=== PATIENT | male | born 1955 | race Caucasian/White ===

== ENCOUNTER 2017-05-03 02:01 | Emergency (ER) | payer SELFPAY ==
[~2017-05-03] VITALS: Ht 165.1 cm; Wt 55.0 kg
[2017-05-03 02:33] LABS: HEMATOCRIT 37.6 % (39.0-50.0); HEMOGLOBIN 12.6 g/dl (14.0-18.0); IMMATURE GRANULOCYTES 0.8 % (0.0-1.0); MEAN CELL VOLUME 94.7 fL CALC (80.0-100.0); MEAN CORPUSCULAR HGB 31.7 pG CALC (26.0-32.0); MEAN CORPUSCULAR HGB CONC 33.5 g/L CALC (32.0-36.0); NEUT# 4.83 thou/uL (1.82-7.42); RED BLOOD COUNT 3.97 mill/uL (4.70-6.10); RED CELL DISTRI WIDTH 13.3 % (11.5-15.5)
[2017-05-03 02:46] LABS: ALBUMIN 3.8 g/dL (3.2-5.0); ALKALINE PHOSPHATASE 75 u/l (38-126); ANION GAP 11 (6-22 (CALC)); BILIRUBIN, TOTAL 0.6 mg/dL (0.0-1.4); BUN 14 mg/dL (8-23); BUN/CREATININE RATIO 17 (12-20 (CALC)); CALCIUM 8.8 mg/dL (8.4-10.2); CARBON DIOXIDE 25 mmol/l (22-30); CHLORIDE 108 mmol/l (95-108); CREATININE 0.8 mg/dL (0.7-1.3); GFR > 60 ML/MIN (>=60 (CALC)); GFR FOR AFR.AMER. > 60 ML/MIN (>=60 (CALC)); GLUCOSE 99 mg/dL (82-115); POTASSIUM 3.2 mmol/l (3.5-5.1); SGOT/AST 49 u/l (19-48); SGPT/ALT 53 u/l (11-66); SODIUM 141 mmol/l (137-146); TOTAL PROTEIN 6.7 g/dL (6.3-8.2)
[2017-05-03 03:00] LABS: MYOGLOBIN 81 ng/mL (0 - 121)
[2017-05-03 03:30] VITALS: BP 143/78
== END 2017-05-03 03:30 | DRG 313 ==
LOC: ED 02:01
PROVIDERS: Emergency Medicine
DX: R07.89 Other chest pain (principal); F41.9 Anxiety disorder, unspecified; F17.210 Nicotine dependence, cigarettes, uncomplicated

== ENCOUNTER 2017-05-18 03:33 | Emergency (ER) | payer SELFPAY | END 2017-05-18 03:35 | disposition left against medical advice (07) | DRG 951 | LOC: ED 03:33 → LWOBS 03:35 | DX: Z91.19 Patient's noncompliance with other medical treatment and regimen (principal) ==

== ENCOUNTER 2019-10-12 | Emergency (ER) | payer SELFPAY ==
[2019-10-12] MEDS ORDERED: KEFLEX500 MG PO (14:47)
== END 2019-10-12 14:50 | disposition home or self-care (01) | DRG 563 ==
DX: S62.635B Displaced fracture of distal phalanx of left ring finger, initial encounter for open fracture (principal); F17.290 Nicotine dependence, other tobacco product, uncomplicated; W20.8XXA Other cause of strike by thrown, projected or falling object, initial encounter

== ENCOUNTER 2020-05-30 10:07 | Emergency (ER) | payer OTHER ==
[~2020-05-30] VITALS: Ht 165.1 cm; Wt 53.0 kg
[~2020-05-30 10:07] MED LIST: KEFLEX500 MG PO
[2020-05-30 10:55] LABS: HEMATOCRIT 44.4 % (39.0-50.0); HEMOGLOBIN 14.4 g/dl (14.0-18.0); IMMATURE GRANULOCYTES 0.5 % (0.0-5.0); MEAN CELL VOLUME 98.7 fL CALC (80.0-100.0); MEAN CORPUSCULAR HGB CONC 32.4 g/dL CAL (32.0-36.0); NEUT# 3.27 thou/uL (1.82-7.42); RED BLOOD COUNT 4.5 mill/uL (4.70-6.10); RED CELL DISTRI WIDTH 13.1 % (11.5-15.5)
[2020-05-30 10:59] LABS: GFR > 60 ML/MIN (>=60 (CALC)); GFR FOR AFR.AMER. > 60 ML/MIN (>=60 (CALC))
[2020-05-30 11:20] LABS: ALBUMIN 3.8 g/dL (3.2-5.0); ALKALINE PHOSPHATASE 84 u/l (38-126); BILIRUBIN, TOTAL 0.3 mg/dL (0.0-1.4); BUN 9 mg/dL (8-23); BUN/CREATININE RATIO 12 (12-20 (CALC)); CARBON DIOXIDE 28 mmol/l (22-30); CHLORIDE 109 mmol/l (95-108); CREATININE 0.8 mg/dL (0.7-1.3); GFR > 60 ML/MIN (>=60 (CALC)); GFR FOR AFR.AMER. > 60 ML/MIN (>=60 (CALC)); POTASSIUM 4.2 mmol/l (3.5-5.1); SGOT/AST 54 u/l (19-48); TOTAL PROTEIN 6.9 g/dL (6.3-8.2)
[2020-05-30 11:30] LABS: ANION GAP 8 (6-22 (CALC)); SODIUM 141 mmol/l (137-146)
[2020-05-30 12:29] VITALS: BP 116/78
== END 2020-05-30 12:30 | DRG 149 ==
LOC: ED 10:07
PROVIDERS: Family Medicine
DX: R42 Dizziness and giddiness (principal); M25.512 Pain in left shoulder; M25.562 Pain in left knee; R07.89 Other chest pain; B19.20 Unspecified viral hepatitis C without hepatic coma; Z20.828 Contact with and (suspected) exposure to other viral communicable diseases
CPT/HCPCS: Q9967